=== PATIENT | female | born 1990 | race Caucasian/White ===

== ENCOUNTER 2018-10-01 07:44 | Emergency (ER) | payer OTHER ==
[2018-10-01 07:49] VITALS: BMI 24.9
[2018-10-01 07:50] VITALS: TEMP 97.4; O2SAT 100
[2018-10-01] MEDS ORDERED: Sodium Chloride 0.9% 1,000 ML IV STA (08:04)
[2018-10-01 08:27] LABS: INR 0.9; PROTHROMBIN TIME 10.7 Seconds (9.8-13.1)
[2018-10-01 08:30] LABS: PARTIAL THROMBOPLASTIN TIME 25.7 Seconds (25.6-37.1)
[2018-10-01 08:34] LABS: BASO # 0.1 K/uL (0.0-0.2); BASO % 1.5 % (0.0-2.0); EOS # 0.2 K/uL (0.0-0.7); HEMOGLOBIN 12.1 g/dL (12.0-16.0); LYMPH # 2.9 K/uL (1.0-4.3); LYMPH % 54.2 % (20.0-40.0); MEAN CORPUSCULAR HEMOGLOBIN 20.8 pg (27.0-31.0); MEAN PLATELET VOLUME 10.2 fl (7.2-11.7); MONO # 0.5 K/uL (0.0-0.8); MONO % 8.9 % (0.0-10.0); NEUT # 1.7 K/uL (1.8-7.0); NEUT % 31.4 % (50.0-75.0); NRBC % 0.1 % (0.0-0.0); RBC 5.83 Mil/uL (3.80-5.20); RED CELL DISTRIBUTION WIDTH 18.6 % (11.5-14.5); WHITE BLOOD COUNT 5.3 K/uL (4.8-10.8)
[2018-10-01 08:42] LABS: ALB/GLOB RATIO 1.1 (1.0-2.1); ALBUMIN 4.3 g/dL (3.5-5.0); ALT/SGPT 21 U/L (9-52); AST/SGOT 46 U/L (14-36); BLOOD UREA NITROGEN 11 mg/dl (7-17); CALCIUM 9.6 mg/dL (8.4-10.2); GFR NON-AFRICAN AMERICAN > 60
[2018-10-01] MEDS ORDERED: Sodium Chloride 0.9% 50 ML IV ONE (10:15)
[2018-10-01] MEDS ORDERED: Iodixanol 320 MG/ML 100 ML BOTTLE IV ONE (10:15)
[2018-10-01 10:27] LABS: SQUAMOUS EPITHIAL 1 /hpf (0-5); URINE BILIRUBIN NEGATIVE (NEGATIVE); URINE BLOOD NEGATIVE (NEGATIVE); URINE CLARITY CLEAR (Clear); URINE COLOR STRAW (YELLOW); URINE GLUCOSE (UA) NEG (NEGATIVE); URINE LEUKOCYTE ESTERASE NEG Leu/uL (Negative); URINE PROTEIN NEGATIVE (NEGATIVE); URINE UROBILINOGEN 0.2-1.0 mg/dL (0.2-1.0)
[2018-10-01 11:01] LABS: BARBITURATES, UR NEGATIVE (NEGATIVE); BENZODIAZEPINES, UR NEGATIVE (NEGATIVE); OPIATES, UR NEGATIVE (NEGATIVE); PHENCYCLIDINE, UR NEGATIVE (NEGATIVE)
--- NOTE | 2018-10-01 11:22 | CT ---
Date of service: 10/01/2018 PROCEDURE: CT Chest with contrast (Pulmonary Angiogram) HISTORY: presyncope, palpitations, elev DDimer COMPARISON: None available. TECHNIQUE: Axial computed tomography images were obtained of the chest in the pulmonary arterial phase of enhancement. Coronal and sagittal reformatted images were created and reviewed. Intravenous contrast dose: 99 cc Visipaque 320. Mean Hounsfield value in the main pulmonary artery: 264.11 Radiation dose: Total exam DLP = 280.89 mGy-cm. This CT exam was performed using one or more of the following dose reduction techniques: Automated exposure control, adjustment of the mA and/or kV according to patient size, and/or use of iterative reconstruction technique. FINDINGS: PULMONARY ARTERIES: Unremarkable. No pulmonary embolism. AORTA: No acute findings. No thoracic aortic aneurysm. No atherosclerotic calcification or mural plaque present. LUNGS: Unremarkable. No nodule, mass or pulmonary consolidation. PLEURAL SPACES: Unremarkable. No effusion or pneumothorax. HEART: Unremarkable. No cardiomegaly. No significant pericardial effusion. LYMPH NODES: No lymphadenopathy. BONES, CHEST WALL: Unremarkable. No fracture or destructive lesion OTHER FINDINGS: Unremarkable. IMPRESSION: Unremarkable CT pulmonary angiogram. No pulmonary embolus.
--- NOTE | 2018-10-01 11:46 | ED PDOC ---
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 On arrival reports normal morning otherwise, admits to having one glass wine and "chocolate" last night, denies drug or etoh abuse. Denies overt dyspnea or chest pain. Denies Past Medical History Reviewed: Historical Data, Nursing Documentation, Vital Signs Vital Signs: Last Vital Signs Temp 97.4 F L 10/01/18 07:49 Pulse 76 10/01/18 08:40 Resp 16 10/01/18 08:40 BP 122/71 10/01/18 08:40 Pulse Ox 100 10/01/18 08:40 - Medical History PMH: No Chronic Diseases - Family History Family History: States: Unknown Family Hx - Living Arrangements Living Arrangements: With Family - Social History Alcohol: Social Drugs: Denies, Other (denies adderal or amphetamine use) - Allergies Allergies/Adverse Reactions: Allergies Allergy/AdvReac Type Severity Reaction Status Date / Time No Known Allergies Allergy Verified 10/01/18 07:57 Physical Exam - Reviewed Nursing Documentation Reviewed: Yes Vital Signs Reviewed: Yes - Physical Exam Appears: Positive for: Non-toxic, Uncomfortable Head Exam: Positive for: ATRAUMATIC, NORMAL INSPECTION, NORMOCEPHALIC Skin: Positive for: Normal Color, Warm. Negative for: Diaphoresis, Pallor, Rash Eye Exam: Positive for: EOMI. Negative for: Periorbital swelling, Periorbital tenderness Neck: Positive for: Normal, Painless ROM Cardiovascular/Chest: Positive for: Regular Rate, Rhythm, Tachycardia Respiratory: Positive for: Normal Breath Sounds. Negative for: Decreased Breath Sounds, Respiratory Distress Pulses-Radial (L): 3+/4+ Pulses-Radial (R): 3+/4+ Gastrointestinal/Abdominal: Positive for: Soft. Negative for: Tenderness Extremity: Positive for: Normal ROM. Negative for: Deformity Neurological/Psych: Positive for: Awake, Alert, Normal Tone, Mood/Affect (very anxious with good insight). 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, Facial Droop - Laboratory Results Result Diagrams: 10/01/18 08:10 10/01/18 08:10 Lab Results: PT 10.7 Seconds (9.8-13.1) 10/01/18 08:10 INR 0.9 10/01/18 08:10 APTT 25.7 Seconds (25.6-37.1) 10/01/18 08:10 D-Dimer, Quantitative 278 ng/mlDDU (0-230) H 10/01/18 08:10 Troponin I < 0.0120 ng/mL (0.00-0.120) 10/01/18 08:10 Total Bilirubin 0.3 mg/dl (0.2-1.3) 10/01/18 08:10 AST 46 U/L (14-36) H 10/01/18 08:10 ALT 21 U/L (9-52) 10/01/18 08:10 Alkaline Phosphatase 67 U/L (38-126) 10/01/18 08:10 Total Protein 8.3 G/DL (6.3-8.2) H 10/01/18 08:10 Albumin 4.3 g/dL (3.5-5.0) 10/01/18 08:10 Globulin 4.0 gm/dL (2.2-3.9) H 10/01/18 08:10 Albumin/Globulin Ratio 1.1 (1.0-2.1) 10/01/18 08:10 Urine Color Straw (YELLOW) 10/01/18 10:00 Urine Clarity Clear (Clear) 10/01/18 10:00 Urine pH 7.0 (5.0-8.0) 10/01/18 10:00 Ur Specific [place] 1.008 (1.003-1.030) 10/01/18 10:00 Urine Protein Negative mg/dL (NEGATIVE) 10/01/18 10:00 Urine Glucose (UA) Neg mg/dL (NEGATIVE) 10/01/18 10:00 Urine Ketones Negative mg/dL (NEGATIVE) 10/01/18 10:00 Urine Blood Negative (NEGATIVE) 10/01/18 10:00 Urine Nitrate Negative (NEGATIVE) 10/01/18 10:00 Urine Bilirubin Negative (NEGATIVE) 10/01/18 10:00 Urine Urobilinogen 0.2-1.0 mg/dL (0.2-1.0) 10/01/18 10:00 Ur Leukocyte Esterase Neg Zack/uL (Negative) 10/01/18 10:00 Urine Microscopic WBC < 1 /hpf (0-5) 10/01/18 10:00 Ur Squamous Epith Cells 1 /hpf (0-5) 10/01/18 10:00 - ECG O2 Sat by Pulse Oximetry: 100 Medical Decision Making Medical Decision Making: workup for palpitations with presyncope/anxiety initiated case monitor maintained labs, EKG ordered patient refused ativan as started to improve spontaneously labs reviewed, elev DDimer, CTA chest thus ordered otherwise trop neg, Hgb normal, UA unremarkable, Chem unremarkable, Utox +THC TSH result d/w patient CTA results reviewed and d/w patient. No PE noted by radiologist. Patient showed dramatic improvement over course of ED stay. Denied known THC exposure or abuse. Explained potential for interaction of THC with causing anxiety like rebound/palpitations, etc. She wished to be discharged, friend accompanying home, she felt much better, did not feel like she required crisis eval, gross neuro exam at baseline prior to DC with HR 70s and normotension. Disposition - Clinical Impression Clinical Impression: Palpitations, Pre-syncope, Anxiety attack - Disposition Referrals: Ora Littlejohn MD [Staff Provider] - Disposition Time: 11:30 Condition: STABLE Additional Instructions: Return to ER for any new or worsening symptoms. Caution with driving today, recommend no driving x24 hours. Instructions: Palpitations, Near Fainting (DC) Forms: [employer] (Hungarian)
[2018-10-01 12:07] VITALS: BP 111/71; PULSE 65; RESP 18
--- NOTE | 2018-10-01 17:38 | CARD ---
APPROVED REPORT Date of service: 10/01/2018 EKG Measurement Heart [id number] <Conclusion> Normal sinus rhythm Normal Electrocardiogram
== END 2018-10-01 11:33 | disposition home or self-care (01) ==
LOC: H.ER 07:44
DX: F41.0 Panic disorder [episodic paroxysmal anxiety] (principal)
CPT/HCPCS: 71275; 80053; 80320; 80324; 80345; 80346; 80349; 80353; 80358; 80361; 81003; 83992; 84443; 84484; 84703; 85025; 85378; 85610; 85730; 93005; 99284; J7030; Q9967